=== PATIENT | female | born 1960 | race Two or more races ===

== ENCOUNTER 2018-02-15 16:25 | Emergency (ER) | payer SELFPAY ==
[~2018-02-15] VITALS: Ht 170.2 cm; Wt 64.1 kg
[2018-02-15] MEDS ORDERED: SODIUM CHLORIDE 0.9% 1,000 ML IV ONE (18:16)
[2018-02-15] MEDS ORDERED: IBUPROFEN 600MG TABLET PO ONE (18:30)
[2018-02-15 19:48] LABS: BASOPHILS % 0.7 % (0.0-2.0); EOSINOPHILS % 0.2 % (0.0-5.0); HEMATOCRIT. 39.2 % (36.0-48.0); HEMOGLOBIN. 13.1 g/dL (12.0-16.0); LYMPHOCYTES % 16.4 % (20.0-50.0); MEAN CORPUSCULAR HEMOGLOBIN 25.5 pg (28.0-32.0); MEAN CORPUSCULAR VOLUME 76.2 fL (81.0-99.0); MEAN PLATELET VOLUME 8.2 fl (7.4-10.4); NEUTROPHILS % 78.7 % (40.0-76.0); PLATELET 295 x1000/uL (130-400); RED BLOOD CELL COUNT 5.14 mill/uL (4.2-5.4); RED CELL DISTRIBUTION WIDTH 15.7 % (11.6-14.6)
[2018-02-15 19:51] LABS: CHLORIDE 108 mEq/L (98-107)
[2018-02-15 19:54] LABS: PARTIAL THROMBOPLASTIN TIME 23.5 sec (23.4-31.0); PROTHROMBIN TIME 10.4 sec (9.1-11.1)
[2018-02-15] MEDS ORDERED: ASPIRIN 325MG EC TABLET PO ONE (20:45)
[2018-02-15 21:39] VITALS: BP 135/64
== END 2018-02-15 21:45 | disposition left against medical advice (07) ==
LOC: ER 16:25 → EDBEDREQTM 20:50 → EDBEDREQ 20:50 → CANRESERV 21:18 → ENRESERV 21:18 → ER 21:45 → CANBEDREQ 02-16 02:05
DX: R55 Syncope and collapse (principal); I10 Essential (primary) hypertension; Z88.8 Allergy status to other drugs, medicaments and biological substances; Z88.5 Allergy status to narcotic agent; Z88.6 Allergy status to analgesic agent; W19.XXXA Unspecified fall, initial encounter; Y93.89 Activity, other specified; Y92.89 Other specified places as the place of occurrence of the external cause; Y99.8 Other external cause status
CPT/HCPCS: 36415; 70450; 71045; 80053; 83880; 84484; 85025; 85610; 85730; 93005; 96360; 99285; J7030; Z7610